=== PATIENT | male | born 1975 | race Caucasian/White ===

== ENCOUNTER 2019-11-08 10:11 | Emergency (ER) | payer OTHER, SELFPAY ==
[2019-11-08 10:18] VITALS: BP 161/85; PULSE 71; RESP 20; TEMP 36.6; O2SAT 98
--- NOTE | 2019-11-08 10:38 | ED.ABDPAIN ---
HPI - Abdominal Pain General Chief Complaint: Abdominal Pain Stated Complaint: stomach bug Time Seen by Provider: 11/08/19 10:38 Source: patient and RN notes reviewed History of Present Illness HPI narrative: Patient is a 44-year-old male who presents the urgent care with complaints of stomach bug . Patient states that his boss was sick last week and on Thursday he started to not feel well. Patient states on Thursday he developed nausea, vomiting, diarrhea and abdominal cramps. Patient states his last episode of loose stool was last night and he did vomit this morning after trying to eat chicken soup. Patient states he is vomited twice in the last 24 hours and has had 2 loose stools. Patient has taken Amita-Avoca but denies any use of [id number] medication for stomach cramps. Denies of any known fever. No other acute complaints. No acute distress noted. Patient aware of the plan of care. Some parts of this dictation were generated by voice recognition software and may contain typographical and/or grammatical inaccuracies. Related Data Home Medications Medication Instructions Recorded Confirmed amlodipine 5 mg PO DAILY 03/21/19 11/08/19 atorvastatin 40 mg PO DAILY 03/21/19 11/08/19 Allergies Allergy/AdvReac Type Severity Reaction Status Date / Time No Known Allergies Allergy Verified 11/08/19 10:34 Review of Systems Review of Systems: Narrative: CONSTITUTIONAL: Denies fever, chills, or sweats. EYES: Denies visual changes, redness, or discharge. ENT: Denies rhinorrhea, congestion, sore throat, or otalgia. CARDIOVASCULAR: Denies chest pain, palpitations, or edema. RESPIRATORY: Denies cough or dyspnea. GASTROINTESTINAL: Reports of abdominal cramping, nausea, vomiting, diarrhea GENITOURINARY: Denies dysuria or hematuria. SKIN: Denies rash or itching. MUSCULOSKELETAL: Denies back pain, joint pain, or myalgia. NEUROLOGIC: Denies headache, numbness, or weakness. All other systems reviewed are negative, except as documented in HPI. [facility] Past Medical History Medical History (Updated 11/08/19 @ 10:50 by DANNA Antonio) Hypercholesteremia Hypertension Psoriasis Social History Social History Alcohol intake: current Comments At the time of my signature, I reviewed and agree with the nursing past medical, surgical, social, and family history. There is no relevant family history pertinent to the patient complaint. Exam Narrative: Exam Narrative: GENERAL: This is a well-nourished, well-developed patient, in no apparent distress. HEAD: normocephalic, atraumatic. EYES: PERRL. Sclera clear/white. Vision is grossly intact. EARS: External ears normal NOSE: External nose normal with no obvious nasal discharge, nares without redness, no rhinorrhea. THROAT: Mucous membranes moist NECK: Neck supple CARDIOVASCULAR: Regular rate and rhythm without murmurs, gallops, or rubs. RESPIRATORY: Clear to auscultation. Breath sounds equal bilaterally. No wheezes, rales, or rhonchi. GASTROINTESTINAL: Abdomen soft, mild epigastric tenderness, nondistended. Bowel sounds are active. No hepato-splenomegaly, or palpable masses. No guarding. SKIN: warm, intact with no suspicious lesions or rash, good texture and turgor. NEURO: awake, alert, and oriented to person, place and time. There were no obvious focal neurologic abnormalities. EXTREMITIES: No clubbing, cyanosis, or edema. Course Vital Signs Vital signs: Vital Signs Temperature 97.8 F 11/08/19 10:18 Pulse Rate 71 11/08/19 10:18 Respiratory Rate 11/08/19 10:18 Blood Pressure 161/85 H 11/08/19 10:18 Pulse Oximetry 98 11/08/19 10:18 Temperature 97.8 F 11/08/19 10:18 Pulse Rate 71 11/08/19 10:18 Respiratory Rate 11/08/19 10:18 Blood Pressure 161/85 H 11/08/19 10:18 Pulse Oximetry 98 11/08/19 10:18 Reviewed-patient is informed that they may have pre-hypertension or hypert
== END 2019-11-08 10:53 | disposition home or self-care (01) ==
PROVIDERS: Emergency Provider Nurse Practitioner Family; PCP Internal Medicine
DX: R11.2 Nausea with vomiting, unspecified (principal); R19.7 Diarrhea, unspecified; E78.00 Pure hypercholesterolemia, unspecified; I10 Essential (primary) hypertension
CPT/HCPCS: 99213; G0463

== ENCOUNTER 2020-01-30 11:17 | Emergency (ER) | payer OTHER, SELFPAY ==
[2020-01-30 11:40] VITALS: BP 115/70; PULSE 78; RESP 20; TEMP 36.7; O2SAT 100
--- NOTE | 2020-01-30 12:04 | ED.GENADULT ---
HPI - General Adult General Chief complaint: Urogenital-Male Stated complaint: penis issues Source: patient Mode of arrival: ambulatory History of Present Illness HPI narrative: 44 y/o male. PMH includes: HTN/HLD. Presents to [facility] today with acute complaints of penile pain , after accidentally getting his penis caught in a zipper 5 days ago . Pt reports since incident, the area that was stuck in the zipper is getting more painful and red . He adds that it was draining a little yesterday . Pt denies additional maleurogen lesions, but does report positive unprotected sexual intercourse, and wouldn't mind being further tested also for venereal disease. No fever. No abdominal pain, dysuria, hematuria, penile discharge, or testicular pain/swelling. He is without additional acute c/o upon PE. Related Data Home Medications Medication Instructions Recorded Confirmed amlodipine 10 mg PO DAILY 03/21/19 01/30/20 atorvastatin 40 mg PO DAILY 03/21/19 01/30/20 isosorbide mononitrate 60 mg PO DAILY 01/30/20 01/30/20 Allergies Allergy/AdvReac Type Severity Reaction Status Date / Time No Known Allergies Allergy Verified 01/30/20 11:51 Review of Systems Review of Systems: Narrative: CONSTITUTIONAL: Denies fever, chills, sweats. EYES: Denies visual changes, redness, discharge. ENT: Denies rhinorrhea, congestion, sore throat, otalgia. CARDIOVASCULAR: Denies chest pain, palpitations, edema. RESPIRATORY: Denies dyspnea, wheezing, cough GASTROINTESTINAL: Denies abdominal pain, nausea, vomiting, diarrhea. GENITOURINARY: Denies dysuria, hematuria, abnormal discharge. Positive penile injury. SKIN: Denies rash or itching. MUSCULOSKELETAL: Denies acute back pain, joint pain, or myalgia. NEUROLOGIC: Denies numbness, or focal weakness. PSYCHIATRIC: Denies anxiety or depression. All systems reviewed & are unremarkable except as noted in HPI and below (HPI. ) [facility] Past Medical History Medical History Hypercholesteremia Hypertension Medial meniscus tear Psoriasis Right knee pain Social History Social History Smoking status: Never smoker Alcohol intake: current Comments At the time of my signature I agree with nursing past medical history, surgical, social, and family history. There is no relevant family history pertinent to the presenting complaint. Exam Narrative: Exam Narrative: GENERAL: This is a well-nourished, well-developed patient, in no apparent distress. HEAD: normocephalic, atraumatic. EYES: PERRL. Sclera clear/white. Vision is grossly intact. EARS: External ears normal, auditory canals clear and without drainage, TMs normal without perforation. Hearing grossly intact. NOSE: External nose normal with no obvious nasal discharge, nares without redness, no rhinorrhea. THROAT: Mucous membranes moist, posterior pharynx clear. NECK: Neck supple, non-tender without lymphadenopathy, masses or thyromegaly. CARDIOVASCULAR: Regular rate and rhythm without murmurs, gallops, or rubs. RESPIRATORY: Clear to auscultation. Breath sounds equal bilaterally. No wheezes, rales, or rhonchi. GASTROINTESTINAL: Abdomen soft, non-tender, nondistended. Bowel sounds are active. No hepato-splenomegaly, or palpable masses. No guarding. SKIN/: ( examination has been completed with [facility] as Escort/Assist). Skin warm and intact, with the exception of small 1 cm area of erythema and excoriation to upper shaft and penile head, consistent with reported zipper injury as noted in HPI. There is minimal yellow/serosanguineous tinged discharge from site. I do not appreciate any additional suspicious lesions or rash. No testicular swelling. Cremaster intact. No additional Integumentary or concern. NEURO: awake, alert, and oriented to person, place and time. There were no obvious focal neurologic abnormalities.
[2020-01-30] MEDS: cefTRIAXone 250 MG VIAL IM (12:12)
[2020-01-30] MEDS: LIDOCAINE HCL 1% LOCAL INJ 20 ML VIAL IM (12:12)
[2020-01-30] MEDS: AZITHROMYCIN 250 MG TABLET 1000 MG PO (12:13)
== END 2020-01-30 12:33 | disposition home or self-care (01) ==
PROVIDERS: Emergency Provider Nurse Practitioner Adult Health; PCP Internal Medicine
DX: N48.22 Cellulitis of corpus cavernosum and penis (principal); E78.00 Pure hypercholesterolemia, unspecified; I10 Essential (primary) hypertension; E78.5 Hyperlipidemia, unspecified
CPT/HCPCS: 81003; 87491; 87591; 87661; 96372; 99213; A9270; G0463; J0696

== ENCOUNTER 2020-02-10 08:02 | Outpatient (CLI) | payer OTHER, SELFPAY ==
--- NOTE | ~2020-02-10 | MR_ITS ---
EXAMINATION: MR knee RT wo con DATE: 02/10/2020 08:51 INDICATION: Right knee pain. TECHNIQUE: Magnetic resonance imaging (MRI) of the right knee was performed without intravenous contr ast. Sequences included axial PD-weighted FS FSE, coronal PD-weighted FSE and PD-weighted FS FSE, sag ittal PD-weighted FSE, and sagittal T2-weighted FS FSE. COMPARISON: Right knee radiographs 01/30/2020 FINDINGS: Medial compartment: There is a vertical tear of posterior horn of medial meniscus. There is an 18 x 7 mm multiloculated c yst adjacent to posterior horn of medial meniscus. There is cartilage fissuring involving the central articular surface of femoral condyle. Tibial cartilage is normal. Lateral compartment: The lateral meniscus is normal. Lateral compartment cartilage is normal. Patellofemoral compartment: There is deep partial thickness cartilage loss of lateral patellar facet distally with mild subchondr al edema-like marrow signal intensity. There is shallow partial-thickness cartilage loss of lateral t rochlea. Ligaments and tendons: The anterior and posterior cruciate ligaments are normal. Medial collateral ligaments and lateral col lateral ligament complex are normal. The patellar tendon is normal. Fluid: There is no knee joint effusion. There is trace fluid in a Joyce's cyst. IMPRESSION: 1. Tear of medial meniscus with paralabral cyst. 2. Mild chondrosis of medial compartment and moderate chondrosis of patellofemoral compartment. Reviewed, dictated and finalized at location [facility]. [facility] [employer] IMPRESSION: 1. Tear of medial meniscus with paralabral cyst. 2. Mild chondrosis of medial compartment and moderate chondrosis of patellofemo ral compartment.
== END 2020-02-10 08:03 ==
LOC: MICIMG 08:03
PROVIDERS: Visit Provider Nurse Practitioner Family
DX: S83.241A Other tear of medial meniscus, current injury, right knee, initial encounter (principal); X58.XXXA Exposure to other specified factors, initial encounter
CPT/HCPCS: 73721

== ENCOUNTER → 2020-03-31 00:55 | Outpatient (CLI) | payer OTHER, SELFPAY ==
[2020-04-01 00:21] LABS: SARS-CoV-2 RNA PCR Negative
== END ==
PROVIDERS: Visit Provider Orthopaedic Surgery
DX: Z01.812 Encounter for preprocedural laboratory examination (principal); Z20.822 Contact with and (suspected) exposure to COVID-19
CPT/HCPCS: C9803; U0003; U0005

== ENCOUNTER 2020-04-02 09:24 | Outpatient (CLI) | payer OTHER, SELFPAY ==
--- NOTE | 2020-04-02 09:27 | ECG_ITS ---
Measurements Intervals [place] Rate: 65 P: 22 TN: 148 QRS: -17 QRSD: 105 T: 11 QT: 385 QTc: 402 Interpretive Statements SINUS RHYTHM WITH SINUS ARRHYTHMIA POOR R WAVE PROGRESSION, ANTERIOR LEADS BORDERLINE T WAVE ABNORMALITY- INFERIOR LEADS BASELINE ARTIFACT- I, II, III, AVR, AVL, AVF BORDERLINE ECG Electronically Signed On 04-02-2020 10:12:25 STEEL WELDER by Timothy Agustin D.O.
== END 2020-04-02 09:25 | disposition home or self-care (01) ==
LOC: ANHSURGERY 09:27
PROVIDERS: PCP Internal Medicine; Visit Provider Orthopaedic Surgery
DX: Z01.812 Encounter for preprocedural laboratory examination (principal); I10 Essential (primary) hypertension; R94.31 Abnormal electrocardiogram [ECG] [EKG]
CPT/HCPCS: 93005

== ENCOUNTER 2020-04-04 01:01 | Day surgery (SDC) | payer OTHER, SELFPAY ==
--- NOTE | 2020-03-27 10:13 | PM.IMHP ---
H&P: HPI History of Present Illness Chief Complaint: Right knee pain Narrative: Knee Pain 44 year old male with Rt knee pain. He states that the pain suddenly started approx 2months ago with NKI. The pt. has had a history of heart surgery and is not allowed to take Ibuprofen but does take Tylenol with some relief of pain. MRI completed 02/10/20 showing a medial meniscus tear. Involved knee: right Onset: sudden Location of pain: medial, lateral, anterior, posterior and other (patella region ) Pain scale (0-10): 8 Character: throbbing and other (sharp ) Timing of pain: intermittent Exacerbated by: weight bearing, stairs, rotational activities and prolonged activity Relieved by: elevation, ice, rest and NSAIDs Associated symptoms: Reports swelling, popping and stiffness History of occupational/recreational activity with repetitive motion: No History of prior knee injury: No Review of Systems Review of Systems: All systems reviewed & are unremarkable except as noted in HPI and below Constitutional: Constitutional: Denies headache(s) and Denies weakness Eyes: Eyes: Denies blurry vision, Denies change in vision and Denies loss of vision ENT: Denies dizziness, Denies dry mouth, Denies headache(s) and Denies nasal congestion Cardiovascular: Cardiovascular: Denies chest pain, Denies syncope, Denies leg edema and Denies dyspnea on exertion Respiratory: Respiratory: Denies cough and Denies dyspnea on exertion Gastrointestinal: Gastrointestinal: Denies abdominal pain, Denies constipation and Denies diarrhea Genitourinary: Genitourinary: Denies urinary frequency Musculoskeletal: Musculoskeletal: Reports as per HPI and Denies numbness Integumentary/Breasts: Skin/Breast: Reports system reviewed and no additional complaints, except as docu Neurologic: Denies dizziness, Denies syncope, Denies headache(s), Denies loss of vision, Denies numbness and Denies weakness Psychiatric: Psychiatric: Reports no additional psychiatric complaints Endocrine: Endocrine: Reports no additional endocrine complaints Hematologic/Lymphatic: Hematologic/Lymphatic: Reports no additional hematologic/lymphatic complaints [facility] Past Medical History Medical History Hypercholesteremia Hypertension Medial meniscus tear Psoriasis Right knee pain Surgical History Surgical History History of back surgery 2017 History of heart surgery 2018 History of shoulder surgery 2010 Family History Family History Other Hypertension Social History Social History Smoking status: Never smoker Alcohol intake: current Meds Home Medications and Allergies Home Medications Medication Instructions Recorded Confirmed Type amlodipine 10 mg PO DAILY 03/21/19 02/21/20 History atorvastatin 40 mg PO DAILY 03/21/19 02/21/20 History amoxicillin-pot clavulanate 1 tablet PO Q12H 10 Days #20 tablet 01/30/20 02/21/20 Rx [Augmentin] isosorbide mononitrate 60 mg PO DAILY 01/30/20 02/21/20 History chlorhexidine gluconate 4 % 1 applic TOPICAL ONCE #237 ml 02/21/20 02/21/20 Rx topical liquid Allergies Allergy/AdvReac Type Severity Reaction Status Date / Time No Known Allergies Allergy Verified 02/20/20 11:48 Exam Narrative: Exam Narrative: Exam Const Constitutional General: cooperative Nutritional Appearance: average body habitus Orientation/consciousness: patient oriented x3 Constitutional Limitations: no limitations HENMT Head: normal to inspection Ears: hearing grossly normal bilaterally General nose exam: Normal external nose present Face and sinus: normal facial exam Mouth: moist mucous membranes Teeth and gingiva: dentition normal Eyes General: appearance normal, both eyes and all related structures Pupils: Yes Equal, ro
[2020-03-28 18:05] VITALS: BMI 38.0
--- NOTE | 2020-04-03 12:11 | P.PNAN_ITS ---
Anes - Initial Pre Proc Eval Procedure: Operation Date: 04/04/20 10:30 Proposed Procedures p Right Knee Arthroscopy, Proceed As Indicated - Anatoliy Razo MD Date/Time: 04/03/20 12:11 Surgeon: Anatoliy Razo MD Pre Op Diagnosis: Right Medial Meniscus Tear Patient Data Age: 44 Gender: M Height: 1.83 m Weight: 127.01 kg Allergies Allergy/AdvReac Type Severity Reaction Status Date / Time No Known Allergies Allergy Verified 04/04/20 08:28 Home Medications Medication Instructions Recorded Confirmed Type amlodipine 5 mg PO DAILY 03/21/19 04/04/20 History atorvastatin 40 mg PO HS 03/21/19 04/04/20 History isosorbide mononitrate 60 mg PO DAILY 01/30/20 04/04/20 History chlorhexidine gluconate 4 % 1 applic TOPICAL ONCE #237 ml 02/21/20 03/28/20 Rx topical liquid aspirin 81 mg PO DAILY 03/28/20 04/04/20 History ECG: Date of Service: 04/02/20 Procedure(s): CA 12 lead EKG Accession Number(s): [id number] cc: ~ Measurements Intervals [place] Rate: 65 P: 22 NM: 148 QRS: -17 QRSD: 105 T: 11 QT: 385 QTc: 402 Interpretive Statements SINUS RHYTHM WITH SINUS ARRHYTHMIA POOR R WAVE PROGRESSION, ANTERIOR LEADS BORDERLINE T WAVE ABNORMALITY- INFERIOR LEADS BASELINE ARTIFACT- I, II, III, AVR, AVL, AVF BORDERLINE ECG Electronically Signed On 04-02-2020 10:12:25 REHABILITATION COUNSELLOR by Timothy Agustin D.O. Dictated By: Timothy Agustin DO 04/02/20 1012 Patient hx anesthesia problems: none Family hx anesthesia problems: none PMFSH Past Medical History Medical History (Updated 04/03/20 @ 12:13 by Arpan Garsia MD) CAD (coronary artery disease) Hypercholesteremia Hypertension Medial meniscus tear Obesity Psoriasis Right knee pain Surgical History Surgical History (Updated 04/03/20 @ 12:13 by Arpan Garsia MD) History of back surgery 2017 History of heart surgery 2018 angioplasty - no stents History of shoulder surgery 2010 Family History Family History Other Hypertension Social History Social History Smoking status: Never smoker Second hand tobacco smoke exposure: No Alcohol intake: current Drinks per week: 2 Alcohol use details: occassionally Substance use: never Living arrangements: with family Spiritual care concerns: No Anes - Eval Final PreProcedure Day of Procedure 04/03/20 12:11 Patient weight: morbidly obese Heart: regular rate and rhythm Lungs: clear to auscultation and normal air movement Airway: Mallampati scale class II Neurological: alert and oriented Last oral intake: >/= 8 hours ASA classification: III Emergent: no Anesthetic plan: proceed Anesthesia type and monitoring: general LMA Informed Consent: The patient's anesthetic plan and its attendant risks and b enefits were discussed with the patient/family/POA. Questions were solicited and answers provided to the satisfaction of the patient/family/POA.
[2020-04-04] VITALS (10 sets, daily range): BP systolic 104–147; BP diastolic 55–84; PULSE 43–66; RESP 10–18; TEMP 36–36.6; O2SAT 95–100
--- NOTE | 2020-04-04 07:37 | WPDHPUPDATE1 ---
History and Physical Update Update Date/Time: 04/04/20 07:37 History and Physical has been reviewed, including an updated exam of the patient. There are NO changes in the patient's condition. Risks, benefits, and alternatives have been discussed and questions answered. Patient agrees to proceed with procedure.
[2020-04-04] MEDS: ACETAMINOPHEN 500 MG TABLET 1000 MG PO (08:32)
[2020-04-04] MEDS: CELECOXIB 200 MG CAPSULE PO (08:32)
[2020-04-04] MEDS: LACTATED RINGERS 1,000 ML 30 ML IV CONT ×2 (08:55→13:18)
--- NOTE | 2020-04-04 09:20 | SUR.PREOP ---
Patient has used crutches before and doesn't feel he needs any training.
[2020-04-04] MEDS: ceFAZolin 3 GM/D5W 100 ML 100 ML IVPB (11:47)
[2020-04-04] MEDS: BUPIVACAINE HCL 0.5% PF 30 ML VIAL INFILTRATE (12:08)
[2020-04-04] MEDS: fentaNYL CITRATE INJ (*CRX) 100 MCG/2 ML VIAL 25 MCG IV PUSH ×8 (13:00→13:21)
--- NOTE | 2020-04-04 13:06 | PM.PROC ---
Procedure Note - Detailed Date of procedure: 04/04/20 Pre-op diagnosis: Right Medial Meniscus Tear Post-op diagnosis: same Procedure performed: RIGHT PARTIAL MEDIAL MENISCECTOMY Description of procedure: PATIENT WAS TAKEN TO THE OR. RIGHT LEG WAS PREPPED AND DRAPED STERILE. TROCARS WERE PLACED IN THE USUAL FASHION. CAMERA WAS INTRODUCED. THERE WAS MINIMAL CHONDROMALACIA TO THE PATELLA FEMORAL JOINT. THERE WAS MILD SYNOVITIS IN HOFFA'S SYNOVIUM. THE MEDIAL COMPARTMENT SHOWED NO CHONDROMALACIA TO THE MED FEMORAL CONDYLE. THERE WAS A RADIAL TEAR TO THE POSTERIOR HORN OF THE MEDIAL MENISCUS. A PARTIAL MEDIAL MENISCECTOMY WAS THEN PREFORMED. APPROXIMATELY 15% OF THE MEDIAL MENISCUS WAS REMOVED. THERE WAS A STABLE POSTERIOR RIM OF MENISCUS AFTER RESECTION. THE ACL WAS INTACT. THE LATERAL MENISCUS WAS NOT TORN AND THERE WAS NO APPRECIABLE CHONDROMALACIA TO THE LATERAL COMPARTMENT. THE KNEE JOINT WAS IRRIGATED THOROUGHLY. THE WOUNDS WERE APPROXIMATED WITH 4.0 NYLON. STERILE DRESSING WAS APPLIED. PATIENT WAS EXTUBATED. Anesthesia: GLMA Surgeon: Anatoliy Razo MD Estimated blood loss (mL): 5 Complications: No immediate complications Condition: stable Disposition: PACU
[2020-04-04] MEDS: HYDROmorphone HCL INJ (*CRX) 1 MG/ML SYR 0.25 MG IV PUSH ×2 (13:23→13:28)
== END 2020-04-04 15:05 | disposition home or self-care (01) ==
PROVIDERS: PCP Internal Medicine; Visit Provider Orthopaedic Surgery
PROC: (CPT 29870; principal; 2020-04-04 10:30)
DX: M23.321 Other meniscus derangements, posterior horn of medial meniscus, right knee (principal); M65.861 Other synovitis and tenosynovitis, right lower leg; I10 Essential (primary) hypertension; I25.10 Atherosclerotic heart disease of native coronary artery without angina pectoris; E78.00 Pure hypercholesterolemia, unspecified; L40.9 Psoriasis, unspecified; E66.01 Morbid (severe) obesity due to excess calories; Z68.41 Body mass index [BMI] 40.0-44.9, adult
CPT/HCPCS: 29881; 93005; A9270; C9803; J0690; J1100; J1170; J2250; J2405; J2704; J3010; J7120; U0003; U0005

== ENCOUNTER 2020-06-25 08:07 | Emergency (ER) | payer OTHER, SELFPAY ==
[2020-06-25 08:10] VITALS: BP 149/85; PULSE 76; RESP 18; TEMP 36.1; O2SAT 98
--- NOTE | 2020-06-25 08:14 | ED.ABDPAIN ---
HPI - Abdominal Pain General Chief Complaint: Abdominal Pain Stated Complaint: stomach pain nausea Time Seen by Provider: 06/25/20 08:14 Source: patient and RN notes reviewed History of Present Illness HPI narrative: Patient is a 44-year-old male who presents the urgent care with complaints of 6 bouts of loose stools and 2 bouts of vomiting since 8 PM last night. Patient states that the last time he vomited was at midnight and his last loose stool was at 7 AM this morning. Patient states that he has been dieting and has increased his lean meats/protein. Patient states that he ate a [employer] pizza last night and he believes that he has food poisoning . Patient states that he was not sure if he could go to work with the loose stools . Denies of nausea at this time. States that he has some intermittent abdominal cramping relieved with bowel movement. Patient denies of any fevers. No other acute complaints. No acute distress noted. Patient aware of the plan of care. Some parts of this dictation were generated by voice recognition software and may contain typographical and/or grammatical inaccuracies. Related Data Home Medications Medication Instructions Recorded Confirmed amlodipine 5 mg PO DAILY 03/21/19 06/25/20 atorvastatin 40 mg PO HS 03/21/19 06/25/20 isosorbide mononitrate 60 mg PO DAILY 01/30/20 06/25/20 aspirin 81 mg PO DAILY 03/28/20 06/25/20 Allergies Allergy/AdvReac Type Severity Reaction Status Date / Time No Known Allergies Allergy Verified 04/16/20 09:26 Review of Systems Review of Systems: Narrative: CONSTITUTIONAL: Denies fever, chills, or sweats. EYES: Denies visual changes, redness, or discharge. ENT: Denies rhinorrhea, congestion, sore throat, or otalgia. CARDIOVASCULAR: Denies chest pain, palpitations, or edema. RESPIRATORY: Denies cough or dyspnea. GASTROINTESTINAL: Reports of diarrhea, intermittent abdominal cramping and nausea/vomiting which is since subsided GENITOURINARY: Denies dysuria or hematuria. SKIN: Denies rash or itching. MUSCULOSKELETAL: Denies back pain, joint pain, or myalgia. NEUROLOGIC: Denies headache, numbness, or weakness. All other systems reviewed are negative, except as documented in HPI. [facility] Past Medical History Medical History CAD (coronary artery disease) Hypercholesteremia Hypertension Medial meniscus tear Obesity Psoriasis Right knee pain Surgical History Surgical History History of back surgery 2017 History of heart surgery 2018 angioplasty - no stents History of shoulder surgery 2010 Family History Family History Other Hypertension Social History Social History Second hand tobacco smoke exposure: No Alcohol intake: current Drinks per week: 2 Substance use: never Spiritual care concerns: No Comments At the time of my signature, I reviewed and agree with the nursing past medical, surgical, social, and family history. There is no relevant family history pertinent to the patient complaint. Exam Narrative: Exam Narrative: GENERAL: This is a well-nourished, well-developed patient, in no apparent distress. HEAD: normocephalic, atraumatic. EYES: PERRL. Sclera clear/white. Vision is grossly intact. EARS: External ears normal NOSE: External nose normal with no obvious nasal discharge, nares without redness, no rhinorrhea. THROAT: Mucous membranes moist NECK: Neck supple CARDIOVASCULAR: Regular rate and rhythm without murmurs, gallops, or rubs. RESPIRATORY: Clear to auscultation. Breath sounds equal bilaterally. No wheezes, rales, or rhonchi. GASTROINTESTINAL: Abdomen soft, mild diffuse tenderness,, nondistended. Bowel sounds are active. SKIN: warm, intact with no suspicious lesions or rash, good texture and turgo
== END 2020-06-25 08:30 | disposition home or self-care (01) ==
PROVIDERS: Emergency Provider Nurse Practitioner Family; PCP Internal Medicine
DX: K52.9 Noninfective gastroenteritis and colitis, unspecified (principal); I25.10 Atherosclerotic heart disease of native coronary artery without angina pectoris; E78.00 Pure hypercholesterolemia, unspecified; I10 Essential (primary) hypertension
CPT/HCPCS: 99211; G0463

== ENCOUNTER 2021-04-08 13:35 | Emergency (ER) | payer OTHER, SELFPAY ==
--- NOTE | ~2021-04-08 | XR_ITS ---
EXAMINATION: XR abdomen/kub 1V DATE: 04/08/2021 14:05 INDICATION: Left upper quadrant abdominal pain. TECHNIQUE: A supine view of the abdomen on 3 radiographs was obtained. COMPARISON: None. FINDINGS: There are no dilated loops of bowel. There is a small volume of stool in the colon. IMPRESSION: 1. Normal bowel gas pattern. Reviewed, dictated and finalized at location [facility]. [facility]
[2021-04-08 13:40] VITALS: BP 142/71; PULSE 82; RESP 18; TEMP 36.7; O2SAT 98
--- NOTE | 2021-04-08 13:49 | ED.ABDPAIN ---
HPI - Abdominal Pain General Chief Complaint: Abdominal Pain Stated Complaint: abdo pain left side Time Seen by Provider: 04/08/21 13:49 Source: patient History of Present Illness HPI narrative: Patient presents with abdominal pain. Patient states this started last night denies any injury states 1 diarrhea stool denies any constipation. Patient states he eats fairly healthy does not eat any fried spicy or fast foods. Related Data Allergies Allergy/AdvReac Type Severity Reaction Status Date / Time No Known Allergies Allergy Verified 04/16/20 09:26 Review of Systems Review of Systems: CONSTITUTIONAL: Denies fever, chills, or sweats. EYES: Denies visual changes, redness, or discharge. ENT: Denies rhinorrhea, congestion, sore throat, or otalgia. CARDIOVASCULAR: Denies chest pain, palpitations, or edema. RESPIRATORY: Denies cough or dyspnea. GASTROINTESTINAL: Denies nausea, vomiting, or diarrhea. Reports generalized abdominal pain GENITOURINARY: Denies dysuria or hematuria. SKIN: Denies rash or itching. MUSCULOSKELETAL: Denies back pain, joint pain, or myalgia. NEUROLOGIC: Denies headache, numbness, or weakness. PSYCHIATRIC: Denies anxiety or depression. PMFSH Past Medical History Medical History CAD (coronary artery disease) Hypercholesteremia Hypertension Medial meniscus tear Obesity Psoriasis Right knee pain Surgical History Surgical History History of back surgery 2017 History of heart surgery 2018 angioplasty - no stents History of shoulder surgery 2010 Family History Family History Other Hypertension Social History Social History Second hand tobacco smoke exposure: No Alcohol intake: current Drinks per week: 2 Alcohol use details: occassionally Substance use: never Spiritual care concerns: No Comments At time of signature, agree with nursing past medical, surgical, social and family history. There is no relevant family history pertinent to the presenting complaint Exam Narrative: GENERAL: Well-appearing, well-nourished, and in no acute distress. HEAD: Normocephalic, atraumatic. EYES: PERRLA and EOMI. ENT: Nares clear, no rhinorrhea or epistaxis. Mucous membranes moist. NECK: Supple. CHEST: Clear to auscultation. No respiratory distress. HEART: Regular rate and rhythm. No murmur heard. Normal peripheral pulses. ABDOMEN: Soft, nondistended, normal active bowel sounds.generalized abdominal discomfort no guarding and no positive signs. EXTREMITIES: Normal range of motion. No edema. SKIN: Warm, dry, no rash. NEURO: No focal deficits. Alert and oriented x3. Ethel Coma Scale Eye Opening: Spontaneous 4 Ethel Coma Scale Motor: Obeys Commands 6 Anders Coma Scale Verbal: Oriented 5 Anders Coma Scale Total 15 GI: GI Palp: Yes Soft to palpation Auscultation: normal bowel sounds Course Course Level of Care: Express Care Visit Vital Signs Vital signs: Vital Signs Temperature 36.7 C 04/08/21 13:40 Pulse Rate 82 04/08/21 13:40 Respiratory Rate 18 04/08/21 13:40 Blood Pressure 142/71 H 04/08/21 13:40 Pulse Oximetry 98 04/08/21 13:40 Temperature 36.7 C 04/08/21 13:40 Pulse Rate 82 04/08/21 13:40 Respiratory Rate 18 04/08/21 13:40 Blood Pressure 142/71 H 04/08/21 13:40 Pulse Oximetry 98 04/08/21 13:40 patient declines transfer to er at this time. discussed red flags and when to go to er. Patient would like to try miralax and prilosec for symptoms. will avoid gaseous foods and will increase fluids. Patient will follow up with PCP as needed and if any new or worsening of symptoms will go to er immediately. Addressed elevated BP today. Today's blood pressure higher than recommended range. Discussed importance of follow
== END 2021-04-08 14:30 | disposition home or self-care (01) ==
PROVIDERS: Emergency Provider Nurse Practitioner Family; PCP Internal Medicine
DX: K59.00 Constipation, unspecified (principal); I25.10 Atherosclerotic heart disease of native coronary artery without angina pectoris; E78.00 Pure hypercholesterolemia, unspecified; I10 Essential (primary) hypertension; E66.9 Obesity, unspecified; Z68.37 Body mass index [BMI] 37.0-37.9, adult
CPT/HCPCS: 74018; 99213; G0463

== ENCOUNTER 2021-07-08 12:25 | Emergency (ER) | payer OTHER, SELFPAY ==
[2021-07-08 12:49] VITALS: BP 142/75; PULSE 61; RESP 16; TEMP 37.1; O2SAT 98
--- NOTE | 2021-07-08 12:50 | ED.URI ---
HPI - URI/Sore Throat General Chief Complaint: Upper Respiratory Infection Stated Complaint: chest congestion Time Seen by Provider: 07/08/21 13:20 Source: patient and RN notes reviewed Mode of arrival: ambulatory Limitations: no limitations History of Present Illness HPI Narrative: 45-year-old male presents with concern for cough, chest congestion, nasal congestion and drainage. Reports symptoms started on Thursday. Reports he has been Mucinex day and night with little relief. He denies fever, body aches, chills, sweats. Reports general malaise. He denies known sick contacts. MD elicited complaint: cough Related Data Home Medications Medication Instructions Recorded Confirmed amlodipine 5 mg PO DAILY 07/08/21 07/08/21 isosorbide mononitrate 60 mg PO DAILY 07/08/21 07/08/21 Allergies Allergy/AdvReac Type Severity Reaction Status Date / Time No Known Allergies Allergy Verified 04/16/20 09:26 Review of Systems Review of Systems: CONSTITUTIONAL: Reports malaise. Denies chills, sweats, or fever. EYES: Denies visual changes, redness, or discharge. ENT: Reports rhinorrhea, congestion, sinus pain. Denies otalgia and sore throat. CARDIOVASCULAR: Denies chest pain, palpitations, or edema. RESPIRATORY: Reports cough, chest congestion. Denies dyspnea. GASTROINTESTINAL: Denies abdominal pain, nausea, vomiting, diarrhea SKIN: Denies rash or itching. MUSCULOSKELETAL: Denies myalgia. NEUROLOGIC: Denies headache. All systems reviewed & are unremarkable except as noted in HPI and below PMFSH Past Medical History Medical History CAD (coronary artery disease) Hypercholesteremia Hypertension Medial meniscus tear Obesity Psoriasis Right knee pain Surgical History Surgical History History of back surgery 2017 History of heart surgery 2018 angioplasty - no stents History of shoulder surgery 2010 Family History Family History Other Hypertension Social History Social History Second hand tobacco smoke exposure: No Alcohol intake: current Drinks per week: 2 Alcohol use details: occassionally Substance use: never Spiritual care concerns: No Comments At time of signature, agree with nursing past medical, surgical, social and family history. There is no relevant family history pertinent to the presenting complaint Exam Narrative: GENERAL: Well-appearing, well-nourished, and in no acute distress. HEAD: Normocephalic EYES: PERRLA, conjunctivae clear ENT: Nares clear, turbinates edematous and erythematous, clear discharge. Mucous membranes moist. TM pearly mcpherson with dull light reflex bilaterally; no tragal tenderness. Oropharynx not erythematous without lesions. Tonsils not enlarged and without exudate, no drooling, no hoarseness, no trismus, uvula midline. NECK: Supple. No lymphadenopathy CHEST: Clear to auscultation, breath sounds equal. No wheezing, rhonchi, rales, or stridor. No respiratory distress, speaks in full sentences. Cough noted HEART: Regular rate and rhythm. No murmur heard. SKIN: Warm, dry, no rash. NEURO: Alert and oriented x3. PSYCH: Normal mood and affect Course Course Emergency Course: Patient is aware of diagnosis, understands and agrees to treatment plan. Anticipatory guidance given. Patient agrees to follow-up as directed and is aware of reasons to seek care at the emergency department. Portions of this record may have been created with voice recognition software Level of Care: Express Care Visit Vital Signs Vital signs: Vital Signs Temperature 98.7 F 07/08/21 12:49 Pulse Rate 61 07/08/21 12:49 Respiratory Rate 16 07/08/21 12:49 Blood Pressure 142/75 H 07/08/21 12:49 Pulse Oximetry 98 07/08/21 12:49 Temperature 98.7 F 07/08
== END 2021-07-08 13:33 | disposition home or self-care (01) ==
PROVIDERS: Emergency Provider Nurse Practitioner; PCP Internal Medicine
DX: J06.9 Acute upper respiratory infection, unspecified (principal); R05.9 Cough, unspecified; I25.10 Atherosclerotic heart disease of native coronary artery without angina pectoris; E78.00 Pure hypercholesterolemia, unspecified; I10 Essential (primary) hypertension; E66.9 Obesity, unspecified; Z68.37 Body mass index [BMI] 37.0-37.9, adult; Z95.1 Presence of aortocoronary bypass graft
CPT/HCPCS: 99213; G0463

== ENCOUNTER 2022-01-25 08:03 | Emergency (ER) | payer OTHER, SELFPAY ==
--- NOTE | 2022-01-25 08:05 | ED.ABDPAIN ---
HPI - Abdominal Pain General Chief Complaint: Abdominal Pain Stated Complaint: Stomach Abdo pain Time Seen by Provider: 01/25/22 08:06 Source: patient and RN notes reviewed History of Present Illness HPI narrative: Patient is a 46-year-old male who presents to urgent care with complaints of lower abdominal pain / cramping since Thursday. Patient denies any fevers, nausea, vomiting. States he did have some body aches and headache on Thursday which has since resolved. It is patient states that he has been able to eat without any issues. Patient is also been taking Pepto. Denies any history of abdominal issues. No other acute complaints. No acute distress noted. Patient aware of the plan of care. Some parts of this dictation were generated by voice recognition software and may contain typographical and/or grammatical inaccuracies. Related Data Home Medications Medication Instructions Recorded Confirmed amlodipine 5 mg tablet 5 mg PO DAILY 07/08/21 01/25/22 isosorbide mononitrate 60 mg 60 mg PO DAILY 07/08/21 01/25/22 tablet,extended release 24 hr atorvastatin 40 mg tablet 40 mg PO DAILY 01/25/22 01/25/22 Allergies Allergy/AdvReac Type Severity Reaction Status Date / Time No Known Allergies Allergy Verified 01/25/22 08:19 Review of Systems Review of Systems: CONSTITUTIONAL: Denies fever, chills, or sweats. EYES: Denies visual changes, redness, or discharge. ENT: Denies rhinorrhea, congestion, sore throat, or otalgia. CARDIOVASCULAR: Denies chest pain, palpitations, or edema. RESPIRATORY: Denies cough or dyspnea. GASTROINTESTINAL: Reports of lower abdominal cramping without nausea, vomiting or diarrhea GENITOURINARY: Denies dysuria or hematuria. SKIN: Denies rash or itching. MUSCULOSKELETAL: Denies back pain, joint pain, or myalgia. NEUROLOGIC: Denies headache, numbness, or weakness. All other systems reviewed are negative, except as documented in HPI. FOR[facility]LY [facility], LAT[facility] Past Medical History Medical History CAD (coronary artery disease) Hypercholesteremia Hypertension Medial meniscus tear Obesity Psoriasis Right knee pain Surgical History Surgical History History of back surgery 2017 History of heart surgery 2018 angioplasty - no stents History of shoulder surgery 2010 Family History Family History Other Hypertension Social History Social History Second hand tobacco smoke exposure: No Alcohol intake: current Drinks per week: 2 Alcohol use details: occassionally Substance use: never Spiritual care concerns: No Comments At the time of my signature, I reviewed and agree with the nursing past medical, surgical, social, and family history. There is no relevant family history pertinent to the patient complaint. Exam Narrative: GENERAL: This is a well-nourished, well-developed patient, in no apparent distress. HEAD: normocephalic, atraumatic. EYES: PERRL. Sclera clear/white. Vision is grossly intact. EARS: External ears normal NOSE: External nose normal with no obvious nasal discharge, nares without redness, no rhinorrhea. THROAT: Mucous membranes moist NECK: Neck supple CARDIOVASCULAR: Regular rate and rhythm without murmurs, gallops, or rubs. RESPIRATORY: Clear to auscultation. Breath sounds equal bilaterally. No wheezes, rales, or rhonchi. GASTROINTESTINAL: Abdomen soft, mild suprapubic tenderness, nondistended. Bowel sounds are active. No guarding. SKIN: warm, intact with no suspicious lesions or rash, good texture and turgor. NEURO: awake, alert, and oriented to person, place and time. There were no obvious focal neurologic abnormalities. EXTREMITIES: No clubbing, cyanosis, or edema. Course Course Level of Care: Express Care Visit Vital Signs Vital si
[2022-01-25 08:10] VITALS: BP 132/80; PULSE 64; RESP 20; TEMP 36.6; O2SAT 100
== END 2022-01-25 08:35 | disposition home or self-care (01) ==
PROVIDERS: Emergency Provider Nurse Practitioner Family; PCP Internal Medicine
DX: R10.30 Lower abdominal pain, unspecified (principal); I25.10 Atherosclerotic heart disease of native coronary artery without angina pectoris; E78.00 Pure hypercholesterolemia, unspecified; I10 Essential (primary) hypertension; E66.9 Obesity, unspecified; Z68.33 Body mass index [BMI] 33.0-33.9, adult; Z95.1 Presence of aortocoronary bypass graft
CPT/HCPCS: 99213; G0463

== ENCOUNTER 2022-12-09 16:24 | Emergency (ER) | payer OTHER, SELFPAY ==
--- NOTE | ~2022-12-09 | XR_ITS ---
EXAMINATION: XR chest 2V DATE: 12/09/2022 16:47 INDICATION: Mid upper back pain. TECHNIQUE: Frontal and lateral views of the chest were obtained. COMPARISON: None. FINDINGS: There is no pneumonia, pleural effusion, or pneumothorax. The heart size is normal. IMPRESSION: 1. No acute cardiopulmonary disease. Reviewed, dictated and finalized at location E.
--- NOTE | 2022-12-09 16:28 | ED.BACK ---
HPI - Back Pain/Injury General Chief Complaint: Back Pain/Injury Stated Complaint: Vikas pain Time Seen by Provider: 12/09/22 16:27 Source: patient Mode of arrival: ambulatory Limitations: no limitations History of Present Illness HPI Narrative: Messi is a 47-year-old male patient presenting to the clinic today with complaints of mid back pain, headache, and nausea for the past 3 days. Patient reports pain 8/10 currently. Took Aleve approximately 2 hours ago. States alleviate will help the headache some but not necessarily help the back pain. Pain is worse with taking deep breaths and moving. No known injury. 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 Denies any chest pain but does have some mild shortness of breath as he is unable to take a deep breath due to the pain. Went to the masseuse yesterday without any relief and went to the chiropractor today and the chiropractor told him he should come in and be evaluated as he may have a rib out of place. Related Data Home Medications Medication Instructions Recorded Confirmed amlodipine 5 mg tablet 5 mg PO DAILY 07/08/21 01/25/22 isosorbide mononitrate 60 mg 60 mg PO DAILY 07/08/21 01/25/22 tablet,extended release 24 hr atorvastatin 40 mg tablet 40 mg PO DAILY 01/25/22 01/25/22 Allergies Allergy/AdvReac Type Severity Reaction Status Date / Time No Known Allergies Allergy Verified 01/25/22 08:19 Review of Systems Review of Systems: Pertinent positives per HPI. Patient denies any fever, chills, rash, headache, visual changes, dizziness, cough, runny nose, sore throat, shortness of breath, chest pain, palpitations, nausea, vomiting, diarrhea, constipation, abdominal pain, or any urinary issues. FORMERLY [facility], LATER [facility] Past Medical History Medical History CAD (coronary artery disease) Hypercholesteremia Hypertension Medial meniscus tear Obesity Psoriasis Right knee pain Surgical History Surgical History History of back surgery 2017 History of heart surgery 2018 angioplasty - no stents History of shoulder surgery 2010 Family History Family History Other Hypertension Social History Social History Second hand tobacco smoke exposure: No Alcohol intake: current Drinks per week: 2 Alcohol use details: occassionally Substance use: never Living arrangements: with family Spiritual care concerns: No Comments At the time of my signature, I reviewed and agree with the nursing past medical, surgical, social, and family history. There is no relevant family history pertinent to the patient complaint. Exam Narrative: General: Well-developed, well nourished, in no apparent distress Head: Normocephalic, atraumatic. Cardio: Regular rate and rhythm, s1 and s2 normal, no murmur appreciated. Resp: Clear to auscultation bilaterally, no rhonchi, rales, wheezing or rubs. Musculoskeletal: No deformity, tender to light palpation over the mid back with pain radiating up into the upper back and neck, grossly normal range of motion, muscle strength strong and equal, peripheral pulse strong, no edema, no cyanosis, normal gait and station Course Course Emergency Course: Portions of this record may have been created with voice recognition software. Level of Care: Express Care Visit Vital Signs Vital signs: Vital signs reviewed MDM - Back Pain/Injury MDM Narrative Medical decision making narrative: At the time of visit patient is resting comfortably on the exam table. X-ray of the chest was performed because patient is complaining of some mid thoracic back pain and shortness of breath. X-rays does not show any sign of acute cardiopulmonary concerned. No sign of rib displacement or fracture. I suspect patient has a th
[2022-12-09 16:35] VITALS: BP 126/87; PULSE 59; RESP 16; TEMP 37.1; O2SAT 99
== END 2022-12-09 16:56 | disposition home or self-care (01) ==
PROVIDERS: Emergency Provider Nurse Practitioner Family
DX: S29.012A Strain of muscle and tendon of back wall of thorax, initial encounter (principal); I25.10 Atherosclerotic heart disease of native coronary artery without angina pectoris; I10 Essential (primary) hypertension; X58.XXXA Exposure to other specified factors, initial encounter
CPT/HCPCS: 71046; 99213; G0463

== ENCOUNTER 2022-12-23 06:36 | Emergency (ER) | payer OTHER, SELFPAY ==
--- NOTE | ~2022-12-23 | CT_ITS ---
. EXAMINATION: CT brain wo con DATE: 12/23/2022 08:43 INDICATION: Headaches for past month. Nausea. TECHNIQUE: Computed tomography (CT) of the head was performed without intravenous contrast. The mA wa s adjusted according to patient size. Iterative reconstruction technique was employed. Exam dose: 75 6.67 mGy-cm total exam DLP. COMPARISON: None FINDINGS: No intracranial mass lesion or hemorrhage or cerebrovascular accident, midline shift or mas s effect is evident. Normal ventricular size. Normal mcpherson-white matter differentiation. No subdural o r epidural hematoma is detected. No fracture or bone destruction of the cranial vault. The mastoid air cells and paranasal sinuses are normally developed and aerated. IMPRESSION: Negative Reviewed, dictated and finalized at Location A. Reviewed, dictated and finalized at location L. IMPRESSION: Negative
[2022-12-23 06:41] VITALS: BP 115/67; PULSE 60; RESP 15; TEMP 36.4; O2SAT 99
[2022-12-23 07:35] VITALS: BP 118/70; PULSE 54; RESP 16; O2SAT 98
[2022-12-23] MEDS: SODIUM CHLORIDE 0.9% IV 1,000 ML 999 ML IV CONT (08:16)
[2022-12-23] MEDS: KETOROLAC 30 MG/ML VIAL (*BKC) IV PUSH (08:18)
[2022-12-23] MEDS: diphenhydrAMINE HCl INJ 50 MG/ML VIAL 25 MG IV PUSH (08:19)
[2022-12-23] MEDS: METOCLOPRAMIDE HCL INJ 10 MG/2 ML VIAL IV PUSH (08:21)
[2022-12-23 08:24] VITALS: BP 106/65; PULSE 55; RESP 17; O2SAT 100
[2022-12-23 09:45] VITALS: BP 102/65; PULSE 51; RESP 15; O2SAT 99
--- NOTE | 2022-12-23 09:49 | ED.HA ---
HPI - Headache General Chief Complaint: Headache Stated Complaint: migraine Time Seen by Provider: 12/23/22 07:32 History of Present Illness HPI Narrative: Patient is a 47-year-old male who presents ER with headache. Sudden onset last night. Frontal and throbbing. No photophobia. No aura. Has been having recurrent headaches over the last month. Patient did recently move. No numbness or weakness in arm or leg. No alleviating factors. No trauma. Radiates to back of head into the neck. Related Data Home Medications Medication Instructions Recorded Confirmed amlodipine 5 mg tablet 5 mg PO DAILY 07/08/21 01/25/22 isosorbide mononitrate 60 mg 60 mg PO DAILY 07/08/21 01/25/22 tablet,extended release 24 hr atorvastatin 40 mg tablet 40 mg PO DAILY 01/25/22 01/25/22 Allergies Allergy/AdvReac Type Severity Reaction Status Date / Time No Known Allergies Allergy Verified 12/23/22 07:36 Review of Systems Review of Systems: All systems reviewed & are unremarkable except as noted in HPI and below Constitutional: Constitutional: Denies chills, Denies fatigue and Denies fever(s) Eyes: Eyes: Denies change in vision and Denies photophobia ENT: Denies nasal congestion and Denies sore throat Cardiovascular: Cardiovascular: Denies chest pain and Denies rapid heart rate Neurologic: Denies syncope, Reports headache(s), Denies focal weakness and Denies numbness PMFSH Past Medical History Medical History CAD (coronary artery disease) Hypercholesteremia Hypertension Medial meniscus tear Obesity Psoriasis Right knee pain Surgical History Surgical History History of back surgery 2017 History of heart surgery 2018 angioplasty - no stents History of shoulder surgery 2010 Family History Family History Other Hypertension Social History Social History Second hand tobacco smoke exposure: No Alcohol intake: current Drinks per week: 2 Alcohol use details: occassionally Substance use: never Living arrangements: with family Spiritual care concerns: No Exam Narrative: GENERAL: Well-appearing, well-nourished, and in no acute distress. HEAD: Normocephalic, atraumatic. EYES: PERRL and EOMI. ENT: Mucous membranes moist. CHEST: Clear to auscultation. No respiratory distress. HEART: Regular rate and rhythm. Normal peripheral pulses. EXTREMITIES: Normal range of motion. No edema. SKIN: Warm, dry, no rash. NEURO: Alert and oriented x3. PSYCH: Normal mood and affect. Course Course Emergency Course: Headache improved with Reglan/Benadryl/Toradol. Recommend follow-up with PCP. May require referral to neurology if headaches persist. Vital Signs Vital signs: Vital Signs Temperature 97.6 F 12/23/22 06:41 Pulse Rate 60 12/23/22 06:41 Respiratory Rate 15 12/23/22 06:41 Blood Pressure 115/67 12/23/22 06:41 Pulse Oximetry 99 12/23/22 06:41 Oxygen Delivery Room Air 12/23/22 06:41 Temperature 97.6 F 12/23/22 06:41 Pulse Rate 55 L 12/23/22 08:24 Respiratory Rate 17 12/23/22 08:24 Blood Pressure 106/65 12/23/22 08:24 Pulse Oximetry 100 12/23/22 08:24 Oxygen Delivery Room Air 12/23/22 06:41 MDM - Headache Imaging Data Radiologist's impression: ITS Impressions Head CT 12/23/22 08:43 IMPRESSION: Negative Discharge Plan Discharge Clinical Impression: Headache Patient Disposition: Home, Self-Care Condition: Stable Instructions: General Headache (ED) Additional Instructions: The ER if you have fever over 100.4 ?F, you cannot keep down food or water, you lose consciousness, you have additional concerns. Prescriptions: No Action amlodipine 5 mg tablet 5 mg PO DAILY
== END 2022-12-23 10:10 | disposition home or self-care (01) ==
PROVIDERS: Emergency Provider Emergency Medicine
DX: R51.9 Headache, unspecified (principal); I25.10 Atherosclerotic heart disease of native coronary artery without angina pectoris; I10 Essential (primary) hypertension
CPT/HCPCS: 70450; 96361; 96374; 96375; 99284; J1200; J1885; J2765; J7030

== ENCOUNTER 2023-05-16 13:39 | Outpatient (CLI) | payer OTHER, SELFPAY ==
--- NOTE | ~2023-05-16 | XR_ITS ---
XR_[id number]_CR 05/16/2023 14:01 Indication: Neck pain for 3 months Procedure: 4 view cervical spine Comparison: No prior studies for comparison. Findings: There is developmental fusion at C2-3. Vertebral body heights are maintained. No significan t disc narrowing. No prevertebral soft tissue abnormality. Odontoid process is normal. Normal cervica l lordosis. Lung apices are normal. Impression: 1: No significant abnormality of the cervical spine. Reviewed, dictated and finalized at location A. Impression: 1: No significant abnormality of the cervical spine.
--- NOTE | ~2023-05-16 | XR_ITS ---
XR lumbar spine 2-3V 05/16/2023 14:01 Indication: Low back pain Procedure: 3 views lumbar spine Comparison: 02/03/2016 Findings: There is severe disc narrowing at L5-S1. There is endplate hypertrophy at L5-S1. No fractur e or traumatic malalignment. Vertebral body heights are maintained. Normal lumbar lordosis. There is facet hypertrophy at L4-5 and L5-S1. Sacral foramen are symmetric. Impression: 1: Moderate lumbar spondylosis primarily involving L5-S1. Reviewed, dictated and finalized at location A. Impression: 1: Moderate lumbar spondylosis primarily involving L5-S1.
== END 2023-05-16 13:40 | disposition home or self-care (01) ==
PROVIDERS: PCP Family Medicine; Visit Provider Family Medicine
DX: M54.2 Cervicalgia (principal); M54.16 Radiculopathy, lumbar region; M43.06 Spondylolysis, lumbar region
CPT/HCPCS: 72040; 72100

== ENCOUNTER 2023-05-19 13:42 | Outpatient (CLI) | payer OTHER, SELFPAY ==
--- NOTE | 2023-05-19 14:30 | NEURO_ITS ---
Impression: # Complains of left hand pain. Not diabetic. # Subtle evolving left Carpal Tunnel Syndrome. # No ulnar neuropathy. # Normal needle/EMG. Nerve Conduction Studies Anti Sensory Summary Table Stim Site NR Peak (ms) P-T Amp (?V) Site1 Site2 Delta-P (ms) Dist (cm) Jose (m/s) Left Median Anti Sensory (2-3nd Digit) Wrist 2.9 37.8 Wrist 2-3nd Digit 2.9 14.0 48 Wrist 3.1 35.5 Wrist 2-3nd Digit 2.9 14.0 48 Left Radial Anti Sensory (Base 1st Digit) Wrist 2.0 15.7 Wrist Base 1st Digit 2.0 0.0 Left Ulnar Anti Sensory (5th Digit) Wrist 2.8 16.4 Wrist 5th Digit 2.8 14.0 50 Motor Summary Table Stim Site NR Onset (ms) O-P Amp (mV) Site1 Site2 Delta-0 (ms) Dist (cm) Jose (m/s) Left Median Motor (Abd Poll Brev) Wrist 3.8 4.2 Elbow Wrist 5.2 31.0 60 Elbow 9.0 4.5 Left Ulnar Motor (Abd Dig Minimi) Wrist 2.3 5.0 A Elbow Wrist 5.4 33.0 61 A Elbow 7.7 3.8 F Wave Studies NR F-Lat (ms) L-R F-Lat (ms) Left Median (Mrkrs) (Abd Poll Brev) 30.31 Left Ulnar (Mrkrs) (Abd Dig Min) 29.34 EMG Side Muscle Nerve Root Ins Act Fibs Amp Dur Recrt Comment Left 1stDorInt Ulnar C8-T1 Nml Nml Nml Nml Nml Left Ext Indicis Radial (Post Int) C7-8 Nml Nml Nml Nml Nml Left Ext Digitorum Radial (Post Int) C7-8 Nml Nml Nml Nml Nml Left BrachioRad Radial C5-6 Nml Nml Nml Nml Nml Left PronatorTeres Median C6-7 Nml Nml Nml Nml Nml Left Abd Poll Brev Median C8-T1 Nml Nml Nml Nml Nml Left ABD Dig Min Ulnar C8-T1 Nml Nml Nml Nml Nml MTDD
== END 2023-05-19 13:43 | disposition home or self-care (01) ==
LOC: ANHNEURO 13:44
PROVIDERS: PCP Family Medicine; Visit Provider Family Medicine
DX: R20.2 Paresthesia of skin (principal); G56.02 Carpal tunnel syndrome, left upper limb
CPT/HCPCS: 95886; 95909